=== PATIENT | male | born 2000 | race Asian ===

== ENCOUNTER 2022-01-08 03:29 | Emergency (ER) | payer OTHER ==
[~2022-01-08] VITALS: Ht 172.7 cm; Wt 54.4 kg
[2022-01-08 03:37] VITALS: BP 145/77
--- NOTE | 2022-01-08 03:44 | NUR ---
TO CHAIR B FOLLOWING TRIAGE
--- NOTE | 2022-01-08 03:46 | NUR ---
Dr. Pressley at Chair B to exam patient.
--- NOTE | 2022-01-08 03:47 | NUR ---
Patient BIB by family/friend from home. C/O alcohol withdrawal x 4 days. Patient reported, last drinking alcohol ~ 4 days ago, since patient could not sleep. A/O,X4, denies pain, no N/V.
[2022-01-08] MEDS ORDERED: diazePAM 5 MG TAB PO ONE (03:50)
[2022-01-08] MEDS ORDERED: MELA5SGL PO (04:49)
[2022-01-08 04:58] VITALS: BP 145/77
--- NOTE | 2022-01-08 04:58 | NUR ---
Patient discharged with v/s stable. Written and verbal after care instructions given and explained. Patient alert, oriented and verbalized understanding of instructions. Ambulatory with steady gait. All questions addressed prior to discharge. ID band removed. Patient advised to follow up with PMD. Rx of Melatonin given. Patient educated on indication of medication including possible reaction and side effects. Opportunity to ask questions provided and answered.
== END 2022-01-08 04:58 | disposition home or self-care (01) ==
LOC: MED 03:29
DX: G47.00 Insomnia, unspecified (principal)
CPT/HCPCS: 99283

== ENCOUNTER 2022-05-02 09:55 | Emergency (ER) | payer OTHER ==
[~2022-05-02] VITALS: Ht 172.7 cm; Wt 61.7 kg
[~2022-05-02 09:55] MED LIST: MELA5SGL PO
[2022-05-02 09:57] VITALS: BP 130/74
--- NOTE | 2022-05-02 10:02 | NUR ---
PT AMBULATED T O Addendum: 05/02/22 at 1005 by [facility] PT AMBULATED TO BED 09.
--- NOTE | 2022-05-02 10:17 | NUR ---
[facility] c[facility] pt states fell down the stairs. denies loc, denies head neck or back pain. breathing unlabored. pending results
[2022-05-02] MEDS ORDERED: ACETAMINOPHEN EXTRA STRENGTH 500 MG TAB PO ONE (10:40)
[2022-05-02] MEDS ORDERED: IBUPROFEN 800 MG TAB PO ONE (10:40)
[2022-05-02] MEDS ORDERED: LIDOCAINE 5% 1 EA PATCH TP SCH (10:40)
--- NOTE | 2022-05-02 10:47 | NUR ---
PT TO RAD VIA WC
--- NOTE | 2022-05-02 11:06 | NUR ---
PT RETURNED FROM RAD VIA WC
--- NOTE | 2022-05-02 11:07 | NUR ---
PATIENT STATES + RELIEF TO PAIN; 5/10 AT THIS TIME.
[2022-05-02] MEDS ORDERED: ACET-10509 PO (11:35)
[2022-05-02] MEDS ORDERED: LID5T TP (11:35)
[2022-05-02] MEDS ORDERED: IBUP-2213 PO (11:35)
--- NOTE | 2022-05-02 11:40 | NUR ---
Patient discharged with v/s stable. Written and verbal after care instructions given and explained. Patient alert, oriented and verbalized understanding of instructions. Ambulatory with steady gait. All questions addressed prior to discharge. ID band removed. Patient advised to follow up with PMD. Rx of Ibuprofen, Lidocaine 5% Patch, Tylenol given. Patient educated on indication of medication including possible reaction and side effects. Opportunity to ask questions provided and answered. Work note provided.
== END 2022-05-02 11:40 | disposition home or self-care (01) ==
LOC: MED 09:55
DX: S20.211A Contusion of right front wall of thorax, initial encounter (principal); S70.11XA Contusion of right thigh, initial encounter; R03.0 Elevated blood-pressure reading, without diagnosis of hypertension; Z79.899 Other long term (current) drug therapy; Z79.1 Long term (current) use of non-steroidal anti-inflammatories (NSAID); W10.8XXA Fall (on) (from) other stairs and steps, initial encounter; Y93.02 Activity, running; Y92.89 Other specified places as the place of occurrence of the external cause; Y99.8 Other external cause status
CPT/HCPCS: 71045; 71100; 99284

== ENCOUNTER 2022-06-19 22:58 | Emergency (ER) | payer OTHER ==
[~2022-06-19] VITALS: Ht 172.7 cm; Wt 59.4 kg
[~2022-06-19 22:58] MED LIST changes: +ACET-10509 PO; +IBUP-2213 PO; +LID5T TP
[2022-06-19 23:04] VITALS: BP 128/69
--- NOTE | 2022-06-20 01:14 | NUR ---
Dr. Lebron examining patient.
[2022-06-20] MEDS ORDERED: LORazepam 1 MG TAB PO ONE (01:20)
[2022-06-20 01:32] VITALS: BP 128/69
--- NOTE | 2022-06-20 01:32 | NUR ---
Patient discharged with v/s stable. Written and verbal after care instructions given and explained. Patient verbalized understanding. Ambulatory with steady gait. All questions addressed prior to discharge. Advised to follow up with PMD.
== END 2022-06-20 01:32 | disposition home or self-care (01) ==
LOC: MED 22:58
DX: G47.00 Insomnia, unspecified (principal); Z76.0 Encounter for issue of repeat prescription; Z72.89 Other problems related to lifestyle
CPT/HCPCS: 99283